=== PATIENT | female | born 1980 | race Two or more races ===

== ENCOUNTER 2020-03-01 15:46 | Outpatient (CLI) | payer MEDICAID | END 2020-03-01 20:29 | disposition home or self-care (01) | LOC: MLB 15:46 | PROVIDERS: ATTEND Obstetrics & Gynecology | DX: Z01.812 Encounter for preprocedural laboratory examination (principal); Z20.828 Contact with and (suspected) exposure to other viral communicable diseases | CPT/HCPCS: U0003-CS ==

== ENCOUNTER 2020-03-05 05:10 | Day surgery (SDC) | payer MEDICAID ==
[~2020-03-05] VITALS: Ht 157.5 cm; Wt 69.4 kg
[2020-03-05 05:59] LABS: BASOPHILS # (AUTO) 0.1 K/uL (0.00-0.22); BASOPHILS % (AUTO) 1.1 % (0.0-2.0); EOSINOPHILS # (AUTO) 0.2 K/uL (0-0.4); EOSINOPHILS % (AUTO) 3.1 % (0.0-4.0); HEMATOCRIT 41.7 % (36-48); HEMOGLOBIN 13.9 g/dL (12.0-16.0); LYMPHOCYTES # (AUTO) 2.6 K/uL (2.5-16.5); LYMPHOCYTES % (AUTO) 34.2 % (20.5-51.1); MEAN CORPUSCULAR HEMOGLOBIN 29 pg (27-31); MEAN CORPUSCULAR HGB CONC 33 g/dL (33-37); MEAN CORPUSCULAR VOLUME 86.8 fL (80-94); MONOCYTES # (AUTO) 0.6 K/uL (0.8-1.0); MONOCYTES % (AUTO) 8.2 % (1.7-9.3); NEUTROPHILS # (AUTO) 4.1 K/uL (1.8-7.7); NEUTROPHILS % (AUTO) 53.4 % (42.2-75.2); PLATELET COUNT (AUTO) 285 K/uL (140-450); RED CELL DISTRIBUTION WIDTH 14.7 % (11.6-13.7); WHITE BLOOD COUNT (AUTO) 7.7 K/uL (4.8-10.8)
[2020-03-05 06:14] LABS: ALBUMIN 3.6 g/dL (3.4-5.0); CREATININE 0.9 mg/dL (0.6-1.3); TOTAL BILIRUBIN 0.6 mg/dL (0.0-1.0)
[2020-03-05] MEDS ORDERED: ATA25 PO (07:00)
[2020-03-05] MEDS ORDERED: METF850T PO (07:00)
[2020-03-05] MEDS ORDERED: GLIP10TA3 PO (07:00)
[2020-03-05] MEDS ORDERED: INSULIN REGULAR, HUMAN 100 UNIT/ML VIAL IVP SCH (07:08)
--- NOTE | 2020-03-05 09:05 | NUR ---
PATIENT HAS BEEN SCREENED AND CATEGORIZED LOW NUTRITION RISK. PATIENT WILL BE SEEN WITHIN 7 DAYS OF ADMISSION. 03/11/[address]
== END 2020-03-05 12:38 | disposition home or self-care (01) ==
LOC: MFCC 05:10 → UNDOADMIN 05:10 → MDS 05:10 → EDUNIT# 07:30 → EDSTATUS 07:30 → UNDODISIN 08:20 → MDS 12:38
PROVIDERS: ATTEND Obstetrics & Gynecology
DX: Z01.818 Encounter for other preprocedural examination (principal)
CPT/HCPCS: 36415; 71045; 80053; 81025; 85025; 86886; 86900; 86901; J0690; J1815; J7060; Q0092